=== PATIENT | female | born 1985 | race Caucasian/White ===

== ENCOUNTER 2023-12-17 15:03 | Emergency (ER) | payer BC, SELFPAY ==
[2023-12-17 15:13] VITALS: BP 114/71; PULSE 77; RESP 18; TEMP 36.7; O2SAT 100; BMI 30.7
--- NOTE | 2023-12-17 15:58 | CRLHL7_ITS ---
For Patients: As a result of the Century Cures Act, medical imaging exams and procedure reports are released immediately into your electronic medical record. You may view this report before your referring provider. If you have questions, please contact your health care provider. INDICATION: RUQ PAIN COMPARISON: None. TECHNIQUE: Ultrasound abdomen limited. Real time zendejas scale imaging and color Doppler analysis was performed of the abdomen. FINDINGS: Liver: The liver is normal in size measuring 14 cm in length. Normal echogenicity. No focal liver lesions identified. Gallbladder: No stones or sludge. No wall thickening or pericholecystic fluid. Negative sonographic Randhawa sign. Bile ducts: The common bile duct measures 2 mm in diameter. Pancreas: Normal where seen. Right kidney: The right kidney measures 11 cm in length. No hydronephrosis, calculus, or mass. Vascular: Normal caliber abdominal aorta. The IVC appears patent. The main portal vein is patent with normal flow direction. IMPRESSION: Unremarkable right upper quadrant abdominal ultrasound. Dictated by Tucker Wright MD @ 12/17/2023 5:07:45 PM (Electronically Signed)
--- NOTE | 2023-12-17 16:07 | ED.GENADULT ---
HPI - General Adult General Chief complaint: Abdominal Pain Stated complaint: Abdominal pain, vomiting Time Seen by Provider: 12/17/23 15:49 Source: patient Mode of arrival: ambulatory Limitations: no limitations History of Present Illness HPI narrative: 38-year-old female coming in today complaining of abdominal pain present for approximately week. Pain is epigastric radiates around both sides into her back. She notices it approximately 1 hour or so after she eats. She states that today it was bad enough for she felt nauseated, she denies vomiting. No fevers or chills. When it comes it lasts a few hours and then dissipates she describes it as a dull pain that is quite significant, has a burning sensation also. She denies any pain into her chest or throat. She denies any urinary symptoms such as frequency, urgency or dysuria. She denies changes in bowel habits. She had an episode of loose stools last week. No weight changes. She does feel quite bloated. She does not take any medications. She has had no surgeries. Patient does state that she has a thyroid dysfunction that she manages by eating a gluten free diet. Related Data Home Medications ?Medication ?Instructions ?Recorded ?Confirmed No Known Home Medications 12/17/23 12/17/23 Allergies Allergy/AdvReac Type Severity Reaction Status Date / Time erythromycin base Allergy Verified 12/17/23 15:12 nickel Allergy Verified 12/17/23 15:12 Penicillins Allergy Verified 12/17/23 15:12 Review of Systems Status of ROS: Reports: 10 or more systems reviewed and unremarkable except as noted in History and below Exam Narrative: Exam Narrative: Well-nourished well-developed patient in no acute distress. Alert and oriented. Answers questions appropriately. Mood and affect are appropriate. Thoughts are goal oriented and rational. No tangential or magical thinking noted. Patient speaks in full sentences without needing to catch her breath. HEENT: Normocephalic atraumatic. Pupils are equally round reactive to light. Extraocular muscles are intact. Conjunctivae are moist without any icterus noted. Moist mucous membranes. Posterior pharynx is normal. Neck is soft . Cardiovascular: Heart is regular rate and rhythm S1 and S2 are present without any murmurs. Lungs: Clear to auscultation bilaterally no wheezes rhonchi or rales are appreciated. Patient takes deep breaths without any discomfort. Abdomen: Soft and nondistended with normal bowel sounds. No guarding or rebound. No masses or organomegaly appreciated. Mild right upper quadrant and epigastric discomfort. Negative Randhawa sign. Extremities: Bilateral lower extremities are without edema. Skin: Well perfused without any obvious rashes. Const: Vital Signs, click to edit/add: Vital Signs - 24 hr 12/17/23 15:13 Temperature 98.1 F Pulse Rate [Pulse Oximeter] 77 Respiratory Rate 18 Blood Pressure [Le ft Upper Arm] 114/71 Pulse Oximetry 100 Oxygen Delivery Me thod Room Air Course Course ED Course: Cough differential diagnoses includes peptic ulcer disease, gastritis, cholelithiasis. Right upper quadrant ultrasound was unremarkable. Blood work was normal. Vital Signs Vital signs: Initial Vital Signs Temperature 98.1 F 12/17/23 15:13 Temperature Source Temporal Artery Scan 12/17/23 15:13 Pulse Rate 77 12/17/23 15:13 Pulse Rhythm Regular 12/17/23 15:13 Respiratory Rate 18 12/17/23 15:13 Blood Pressure 114/71 12/17/23 15:13 Blood Pressure Mean 85 12/17/23 15:13 Blood Pressure Position Supine 12/17/23 15:13 Pulse Oximetry 100 12/17/23 15:13 Oxygen Delivery Method Room Air 12/17/23 15:13 Vital Signs Temperature 98.1 F 12/17/23 15:13 Pulse Rate 77 12/17/23 15:13 Respiratory Rate 18 12/17/23 15:13 Blood Pressure 114/71 12/17/23 15:13 Pulse Oximetry 100 12/17/23 15:13 Oxygen Delivery Method Room Air 12/17/23 15:13 Temperature 98.1 F 12/17/23 15:13 Pulse Rate 77 12/17/23 15:13 Respiratory Rate 18 12/17/23 15:13 Blood Pressure 114/71 12/17/23 15:13 Pulse Oximetry 100 12/17/23 15:13 Oxygen Delivery Method Room Air 12/17/23 15:13 Medical Decision Making MDM Narrative Medical decision making narrative: 38-year-old female with epigastric discomfort likely gastritis. Will treat with famotidine and omeprazole. Lab Data Lab results reviewed: Yes I reviewed the patient's lab results Labs: Lab Results 12/17/23 Range/Units 16:14 WBC 10.57 (4.50-11.00) K/uL RBC 3.99 L (4.00-5.20) m/uL Hgb 12.1 (12.0-16.0) gm/dL Hct 36.3 (33.0-51.0) % MCV 91 (80-100) fL MCH 30 (26-34) pg MCHC 33 (32-36) gm/dL RDW Coeff of [place] 12.1 (11.5-15.5) % Plt Count 216 (140-440) K/uL Neut % (Auto) 74.1 H (42.0-72.0) % Lymph % (Auto) 11.7 L (20-44) % [place] % (Auto) 10.4 (0.0-11.0) % Eos % (Auto) 3.4 (0.0-7.0) % Baso % (Auto) 0.2 (0.0-3.0) % Neut # (Auto) 7.80 H (1.7-7.0) K/uL Lymph # (Auto) 1.20 (0.90-2.90) K/uL [place] # (Auto) 1.10 H (0.00-0.90) K/UL Eos # (Auto) 0.36 (0.00-0.50) K/uL Baso # (Auto) 0.02 (0.00-0.30) K/uL Abs Immat Gran (auto) 0.02 (0.00-0.30) K/uL Imm/Tot Granulo (auto) 0.2 % Sodium 135 (135-149) mmol/L Potassium 3.8 (3.6-5.1) mmol/L Chloride 102 (96-114) mmol/L Carbon Dioxide 26 (20-32) mmol/L Anion Gap 7 (7-15) mEq/L BUN 17 (5-24) mg/dL Creatinine 0.7 (0.5-1.5) mg/dL Estimated Creat Clear 101.01 Estimated GFR 113 ml/min Glucose 118 H (60-115) mg/dL Lactate 0.7 (0.5-1.9) mmol/L Calcium 9.0 (8.4-10.6) mg/dL Total Bilirubin < 0.1 L (0.1-1.5) mg/dL Direct Bilirubin 0.0 (0.0-0.5) mg/dL AST 20 (12-35) U/L ALT 19 (4-35) U/L Alkaline Phosphatase 42 (40-150) U/L C-Reactive Protein < 0.5 L (0.5-1.0) mg/dL Total Protein 7.1 (6.0-8.3) g/dL Albumin 4.2 (3.3-5.0) g/dL Lipase 78 (23-300) U/L Imaging Data US - abdomen: Attestation: I have reviewed the pertinent imaging results. Radiologist's impression: Ultrasound abdomen limited. Real time zendejas scale imaging and color Doppler analysis was performed of the abdomen. FINDINGS: Liver: The liver is normal in size measuring 14 cm in length. Normal echogenicity. No focal liver lesions identified. Gallbladder: No stones or sludge. No wall thickening or pericholecystic fluid. Negative sonographic Randhawa sign. Bile ducts: The common bile duct measures 2 mm in diameter. Pancreas: Normal where seen. Right kidney: The right kidney measures 11 cm in length. No hydronephrosis, calculus, or mass. Vascular: Normal caliber abdominal aorta. The IVC appears patent. The main portal vein is patent with normal flow direction. IMPRESSION: Unremarkable right upper quadrant abdominal ultrasound. Discharge Plan Discharge Clinical Impression: Gastritis Instructions: Gastritis (ED) Additional Instructions: Your workup today did not show any evidence of significant infection. The ultrasound of your gallbladder appear normal. Your symptoms are likely caused by gastritis which is an inflammation of the lining of the stomach. We treat this by decreasing the amount of acid in the stomach. I recommend you take famotidine as needed when you have acute discomfort and take 1 daily omeprazole for the next 4 weeks. If your symptoms do not improve, then you should follow-up with your primary care provider. You should return to the emergency room if you develop worsening pain, vomiting, or fevers. Both famotidine and omeprazole can be purchased [id number]. Prescriptions: No Action No Known Home Medications Follow Up/Referrals: Provider,Not a Local [Primary Care Provider] - Stand Alone Forms: [employer] Info Instructions
[2023-12-17 16:25] LABS: Lactate* 0.7 mmol/L (0.5-1.9)
[2023-12-17 16:26] LABS: Basophils Absolute Auto 0.02 K/uL (0.00-0.30); Basophils Percent Auto 0.2 % (0.0-3.0); Eosinophils Absolute Auto 0.36 K/uL (0.00-0.50); Eosinophils Percent Auto 3.4 % (0.0-7.0); Hematocrit 36.3 % (33.0-51.0); Hemoglobin* 12.1 gm/dL (12.0-16.0); Immature Granulocytes Abs Auto 0.02 K/uL (0.00-0.30); Immature Granulocytes Pct Auto 0.2 %; Lymphocytes Percent Auto 11.7 % (20-44); Mean Corpuscular HGB Conc 33 gm/dL (32-36); Mean Corpuscular Hemoglobin 30 pg (26-34); Mean Corpuscular Volume 91 fL (80-100); Monocytes Percent Auto 10.4 % (0.0-11.0); Neutrophils Percent Auto 74.1 % (42.0-72.0); Platelet Count* 216 K/uL (140-440); RDW Coefficient of Variation % 12.1 % (11.5-15.5); Red Blood Count 3.99 m/uL (4.00-5.20); White Blood Count* 10.57 K/uL (4.50-11.00)
[2023-12-17 16:31] LABS: Slide Review Reflex No
[2023-12-17 16:46] LABS: Chloride* 102 mmol/L (96-114); Sodium* 135 mmol/L (135-149)
[2023-12-17 16:47] LABS: Albumin* 4.2 g/dL (3.3-5.0)
[2023-12-17 16:50] LABS: Alkaline Phosphatase* 42 U/L (40-150); Anion Gap 7 mEq/L (7-15); Aspartate Amino Transferase* 20 U/L (12-35); Blood Urea Nitrogen* 17 mg/dL (5-24); Carbon Dioxide* 26 mmol/L (20-32); Creatinine* 0.7 mg/dL (0.5-1.5); Est. Creatinine Clearance* 101.01; Estimated Glomerular Filt Rate 113 ml/min; Glucose* 118 mg/dL (60-115); Lipase* 78 U/L (23-300); Potassium* 3.8 mmol/L (3.6-5.1); Total Protein* 7.1 g/dL (6.0-8.3)
[2023-12-17 16:51] LABS: Alanine Aminotransferase* 19 U/L (4-35)
[2023-12-17 16:52] LABS: Bilirubin Total* < 0.1 mg/dL (0.1-1.5)
[2023-12-17 16:53] LABS: C Reactive Protein* < 0.5 mg/dL (0.5-1.0)
== END 2023-12-17 17:34 | disposition home or self-care (01) ==
PROVIDERS: Emergency Provider Family Medicine
DX: K29.70 Gastritis, unspecified, without bleeding (principal)
CPT/HCPCS: 36415; 76705; 80048; 80076; 83605; 83690; 85025; 86140; 99283; 99284